=== PATIENT | male | born 1995 | race Hispanic/Latino ===

== ENCOUNTER 2017-05-07 18:51 | Emergency (ER) | payer OTHER ==
[~2017-05-07] VITALS: Ht 188 cm; Wt 113.6 kg
[2017-05-07] MEDS: OXYCODONE/APAP 5MG/325MG(BULK FOR ED) 1 TABLET PO ONE (21:35)
[2017-05-07] MEDS: PERCOCET 5MG/325MG TAB PO ONE (21:36)
[2017-05-07 21:41] VITALS: BP 142/72
== END 2017-05-07 21:42 | disposition home or self-care (01) ==
LOC: M ED 18:51
DX: M54.5 Low back pain (principal); Z87.891 Personal history of nicotine dependence